=== PATIENT | female | born 1960 | race Caucasian/White ===

== ENCOUNTER → 2016-05-29 | Outpatient (CLI) | payer BC ==
[2016-05-29 11:56] LABS: BUN 28 mg/dL (7-18)
[2016-05-29 11:57] LABS: GFR (ESTIMATED) 65 ML/MIN (59-)
--- NOTE | 2016-05-30 10:16 | RADIOLOGY REPORT PS360 ---
MRI-L-SPINE W/WO, MRI-3D RENDERING/MYELOGRAM HISTORY: Low back pain and right leg pain with tingling [facility] WITH DISORDER OF LUMBAR SPINE ORDERING PHYSICIAN: Elijah Tolbert MD PATIENT AGE: 55 years COMPARISON: 01/24/2014 MRI TECHNIQUE: Standard multiplanar multiecho sequences are performed without and with gadolinium enhancement . 3-D MIP and myelographic images are also rendered and reviewed FINDINGS: There is normal alignment. The spinal cord ends at the L2 level. There are scattered T1 and T2 hyperintensities of the lumbar spine consistent with incidental lipomatous areas as before L1-L2, L2-L3, and L3-L4 have an unremarkable appearance. L4-5: There is mild facet and ligamentum flavum hypertrophy with mild bilateral lateral recess narrowing. L5-S1: Mild degenerative disc disease with bulging disc. No evidence of residual or recurrent disc herniation. There is minimal retrolisthesis of L5 on S1 of approximately 5 mm. Mild type II endplate changes are present. Laminotomy defect noted on the left at this level. There is some mild enhancement anterior to the thecal sac at L5-S1 consistent with mild epidural fibrosis. As is also in the perineural region along the left S1 nerve root. No extruded herniated disc evident. IMPRESSION: 1. Postsurgical changes with degenerative disc disease with bulging disc at L5-S1 with findings consistent with epidural fibrosis surrounding the left S1 nerve root. No residual or recurrent disc herniation evident. 2. Minimal bulging disc at L4-5 slightly eccentric to the left
== END ==
LOC: RAD 11:40
PROVIDERS: Internal Medicine Adolescent Medicine
DX: M53.9 Dorsopathy, unspecified (principal)
CPT/HCPCS: A9576